=== PATIENT | male | born 1970 | race Caucasian/White ===

== ENCOUNTER 2017-12-26 09:24 | Emergency (ER) | payer OTHER ==
[2017-12-26 09:32] VITALS: BP 161/88; PULSE 87; RESP 16; TEMP 98; O2SAT 98
--- NOTE | 2017-12-26 10:02 | C.PDOC ---
History Of Present Illness 47 y/o M p/w chin rash x 1 day. Patient states he gets this rash once every year in the winter time for the last 3 years. He has shown Dr. Sullivan PMD in the past and was prescribed allergy medication. He reports it as itchy and he notes that the corners of his mouth have split skin. He denies pain, fever, sore throat, dyspnea, drooling. Time Seen by Provider: 12/26/17 09:33 Chief Complaint (Nursing): Abnormal Skin Integrity Past Medical History Vital Signs: Last Vital Signs Temp 98 F 12/26/17 09:30 Pulse 87 12/26/17 09:30 Resp 16 12/26/17 09:30 BP 161/88 H 12/26/17 09:30 Pulse Ox 98 12/26/17 09:30 - Medical History PMH: HTN Denies: HIV, Chronic Kidney Disease Surgical History: Appendectomy (perforated appendix) Family History: States: No Known Family Hx - Social History Hx Tobacco Use: Yes Hx Alcohol Use: No Hx Substance Use: No - Immunization History Hx Tetanus Toxoid Vaccination: No Hx Influenza Vaccination: No Hx Pneumococcal Vaccination: No Review Of Systems Except As Marked, All Systems Reviewed And Found Negative. Constitutional: Negative for: Fever Respiratory: Negative for: Shortness of Breath Physical Exam - Physical Exam Additional Physical Exam Comments: Gen: NAD Head: NC Eyes: No scleral icterus ENT: No pharyngeal erythema or exudates. Airway patent Neck: Supple CV: Regular rate Resp: No accessory muscle use Skin: From lower lip to under chin, mild erythema without tenderness. Corners of mouth with cracked skin, no discharge. Neuro: Alert, no focal deficit ED Course And Treatment O2 Sat by Pulse Oximetry: 98 Medical Decision Making Medical Decision Making: Patient with same rash recurring for 3 years. No danger of airway compromise, not clinically cellulitis. Will treat as allergic reaction, could be vitamin deficiency, dry skin from cold weather. Advised patient to follow up with dermatology. Disposition - Disposition Referrals: Jamir Sullivan MD [Staff Provider] - Disposition: HOME/ ROUTINE Disposition Time: 10:03 Condition: STABLE Prescriptions: DiphenhydrAMINE [Benadryl] 2 cap PO Q8 #25 cap Famotidine [Pepcid] 1 tab PO BID #14 tab Instructions: Mouth Sores - Clinical Impression Clinical Impression: Rash
== END 2017-12-26 10:10 | disposition home or self-care (01) ==
LOC: C.ER 09:24
DX: R21 Rash and other nonspecific skin eruption (principal)

== ENCOUNTER 2018-08-23 07:12 | Emergency (ER) | payer OTHER ==
[2018-08-23 07:19] VITALS: TEMP 97.9; O2SAT 97
[2018-08-23 08:10] LABS: URINE BILIRUBIN NEGATIVE (NEGATIVE); URINE BLOOD 1+ (NEGATIVE); URINE CLARITY Clear (Clear); URINE COLOR Yellow (YELLOW); URINE GLUCOSE (UA) NORMAL (Normal); URINE LEUKOCYTE ESTERASE NEG Leu/uL (Negative); URINE PROTEIN NEGATIVE (NEGATIVE); URINE UROBILINOGEN NORMAL mg/dL (0.2-1.0)
[2018-08-23 08:29] VITALS: BP 155/99; PULSE 60; RESP 18
--- NOTE | 2018-08-23 08:29 | C.PDOC ---
History Of Present Illness 48-year-old, PMHx includes chronic back pain, comes in for evaluation of diffuse lower back pain worsening over the past two weeks. Pain is localized and worse with movement. 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 Noted elevated blood pressure on triage, pt asked and he denies taking any medication. He denies headache, dizziness, visual changes, focal deficits, neck pain, chest pain, shortness of breath, dyspnea, palpitation, abdominal pain, N/V, UTI sx ,saddle anesthesia,m incontinence, denies weakness, sensory or vascular deficits to B/L lEs. Ambulate to Ed for evaluation, not in any apparent distress. Time Seen by Provider: 08/23/18 07:24 Chief Complaint (Nursing): Back Pain History Per: Patient History/Exam Limitations: no limitations Past Medical History Reviewed: Historical Data, Nursing Documentation, Vital Signs Vital Signs: Last Vital Signs Temp 97.9 F 08/23/18 07:17 Pulse 68 08/23/18 07:17 Resp 16 08/23/18 07:17 BP 193/102 H 08/23/18 07:17 Pulse Ox 97 08/23/18 07:17 - Medical History PMH: HTN Surgical History: Appendectomy (perforated appendix) Family History: States: No Known Family Hx - Social History Hx Tobacco Use: Yes Hx Alcohol Use: No Hx Substance Use: No - Immunization History Hx Tetanus Toxoid Vaccination: No Hx Influenza Vaccination: No Hx Pneumococcal Vaccination: No Review Of Systems Constitutional: Negative for: Fever Cardiovascular: Negative for: Chest Pain Respiratory: Negative for: Shortness of Breath Gastrointestinal: Negative for: Vomiting Genitourinary: Negative for: Incontinence Musculoskeletal: Positive for: Back Pain Neurological: Negative for: Weakness, Numbness Physical Exam - Physical Exam Appears: Well, Non-toxic, No Acute Distress Skin: Normal Color, Warm, Dry, No Rash Head: Normacephalic Eye(s): bilateral: PERRL Nose: No Flaring, No Discharge Oral Mucosa: Moist, No Drooling Tongue: Normal Appearing Lips: Normal Appearing Throat: No Drooling Neck: Normal ROM, Trachea Midline, Supple Cardiovascular: Rhythm Regular, No Murmur, No JVD Respiratory: No Decreased Breath Sounds, No Accessory Muscle Use, No Wheezing, No Plerual Rub Gastrointestinal/Abdominal: Soft, No Tenderness, No Distention, No Guarding, No Rebound Back: No CVA Tenderness, No Vertebral Tenderness, Muscle Spasm (lumbar paraspinal), Paraspinal Tenderness (diffuse lumbar) Extremity: Normal ROM, No Pedal Edema, No Deformity, No Swelling Neurological/Psych: Oriented x3, Normal Speech, Normal Motor, Normal Sensation, Normal Reflexes ED Course And Treatment O2 Sat by Pulse Oximetry: 97 Pulse Ox Interpretation: Normal (RA) - Other Rad L-spine X-Ray: Interpreted by Me, Viewed By Me Interpretation: (-) acute fx or sublux Progress Note: On re-eval, pt is afebrile, hemodynamicaly stable. BP improved with BP medictaion while in ED. Non-toxic. Ambulatory rin ED with stable gait. ENT: no acute findings. neck: Supple, (-) JVD, (-) carotid bruits B/L. CVS: (+)S1S2, reg, (-) murmur. Abd: benign. Back: (-) CVA tenderness. Neurologicaly intact. Pt denies CP, SOB, dyspnea, palpitation. UA review - normal study. L-spine- normal study. Pt has clinical findings c/w lumbar strain, HTN. Pt advised. ref. to F/u with PMD in 1-2 dyas for BP re-check. return to Ed if any worsening or new changes. Disposition Counseled Patient/Family Regarding: Studies Performed, Diagnosis, Need For Followup, Rx Given - Disposition Referrals: at [facility] [Outside] Disposition: HOME/ ROUTINE Disposition Time: 08:31 Condition: STABLE Additional Instructions: Light duty to lower back Avoid heavy lifting Take medication as prescribed Follow up with PMD in 1-2 days for BP repeat return to Ed if any worsening or new changes. Prescriptions: Gabapentin [Neurontin] 300 mg PO HS #10 cap Lisinopril [Zestril] 5 mg PO DAILY #14 tab traMADol [Ultram] 50 mg PO Q12 #7 tab Instructions: High Blood Pressure in Adults, Low Back Pain (DC) Forms: [facility] (Armenian), Work Excuse - Clinical Impression Clinical Impression: Low back strain, HTN (hypertension) - Scribe Statement The provider has reviewed the documentation as recorded by the Scribe (Angela Alvarado) All medical record entries made by the Scribe were at my direction and personally dictated by me. I have reviewed the chart and agree that the record accurately reflects my personal performance of the history, physical exam, medical decision making, and the department course for this patient. I have also personally directed, reviewed, and agree with the discharge instructions and disposition.
--- NOTE | 2018-08-23 11:42 | RAD ---
Date of service: 08/23/2018 PROCEDURE: Radiographs of the Lumbar Spine. HISTORY: pain COMPARISON: CT abdomen and pelvis without contrast performed 07/02/13 FINDINGS: BONES: Alignment appears satisfactory. No listhesis. No acute displaced fracture identified. Multilevel degenerative changes including small anterior osteophytes. DISC SPACES: Unremarkable. OTHER FINDINGS: Atherosclerotic calcifications of the abdominal aorta. IMPRESSION: No acute displaced fracture or subluxation identified. Degenerative changes.
== END 2018-08-23 08:58 | disposition home or self-care (01) ==
LOC: C.ER 07:12
DX: S39.012A Strain of muscle, fascia and tendon of lower back, initial encounter (principal); X50.0XXA Overexertion from strenuous movement or load, initial encounter; Y99.0 Civilian activity done for income or pay; I10 Essential (primary) hypertension; Z72.0 Tobacco use

== ENCOUNTER 2018-11-28 22:28 | Inpatient (IN) | payer OTHER ==
[2018-11-28] MEDS ORDERED: Sodium Chloride 0.9% 1,000 ML IV ONE (22:42)
[2018-11-28 23:03] LABS: BASO # 0.1 K/uL (0.0-0.2); BASO % 0.8 % (0.0-2.0); EOS # 0.4 K/uL (0.0-0.7); EOS % 2.1 % (0.0-4.0); HEMOGLOBIN 16.4 g/dL (12.0-18.0); LYMPH # 2.1 K/uL (1.0-4.3); LYMPH % 12.3 % (20.0-40.0); MEAN CORPUSCULAR HEMOGLOBIN 29.5 pg (27.0-31.0); MEAN CORPUSCULAR HGB CONC 33.2 g/dL (33.0-37.0); MEAN PLATELET VOLUME 7.5 fL (7.2-11.7); MONO # 0.9 K/uL (0.0-0.8); MONO % 5.2 % (0.0-10.0); NEUT # 13.5 K/uL (1.8-7.0); NEUT % 79.6 % (50.0-75.0); NRBC % 0.1 % (0.0-2.0); RBC 5.57 Mil/uL (4.40-5.90); WHITE BLOOD COUNT 16.9 K/uL (4.8-10.8)
[2018-11-28] MEDS ORDERED: Morphine 4 MG/ML VIAL ONE (23:03)
[2018-11-28] MEDS ORDERED: Sodium Chloride 0.9% 1,000 ML ONE (23:03)
--- NOTE | 2018-11-28 23:03 | C.PDOC ---
History Of Present Illness 48 y/o male presents to the ED with complaints of mid/generalized abdominal pain with sudden onset at 8:00pm this evening. Patient reports he has frequent constipation and often passes only small stools, however his last BM was at noon today. He also notes his belly feels distended. Otherwise patient denies any nausea, vomiting, fevers, chills, or diarrhea. No urinary complaints. Surgical history is significant for appendectomy many years ago. Time Seen by Provider: 11/28/18 22:36 Chief Complaint (Nursing): Abdominal Pain History Per: Patient History/Exam Limitations: no limitations Onset/Duration Of Symptoms: Hrs (x 2) Current Symptoms Are (Timing): Still Present Location Of Pain/Discomfort: Diffuse Alleviating Factors: None Last Bowel Movement: Today Recent travel outside of the [place]: No Past Medical History Reviewed: Historical Data, Nursing Documentation, Vital Signs Vital Signs: Last Vital Signs Temp 97.3 F L 11/28/18 22:32 Pulse 96 H 11/28/18 22:32 Resp 20 11/28/18 22:32 BP 196/103 H 11/28/18 22:32 Pulse Ox 100 11/28/18 22:32 - Medical History PMH: HTN Denies: HIV, Chronic Kidney Disease Surgical History: Appendectomy (perforated appendix) Family History: States: Unknown Family Hx - Social History Hx Tobacco Use: Yes Hx Alcohol Use: No Hx Substance Use: No - Immunization History Hx Tetanus Toxoid Vaccination: No Hx Influenza Vaccination: No Hx Pneumococcal Vaccination: No Review Of Systems Constitutional: Negative for: Fever, Chills Cardiovascular: Negative for: Chest Pain Respiratory: Negative for: Shortness of Breath Gastrointestinal: Positive for: Abdominal Pain (and distension), Constipation. Negative for: Nausea, Vomiting, Diarrhea Genitourinary: Negative for: Dysuria, Hematuria Neurological: Negative for: Weakness, Dizziness Physical Exam - Physical Exam Appears: Non-toxic, No Acute Distress, Other (Blood pressure elevated, 196/103) Skin: Normal Color, Warm, No Diaphoretic Head: Atraumatic, Normacephalic Eye(s): bilateral: Normal Inspection, PERRL, EOMI Oral Mucosa: Moist Neck: Normal ROM Chest: Symmetrical Cardiovascular: Rhythm Regular (but tachycardic), No Murmur Respiratory: Normal Breath Sounds, No Accessory Muscle Use Gastrointestinal/Abdominal: Bowel Sounds (Tympanitic), Soft, Tenderness (diffusely), Distention (+ abdomen distended), Guarding (tense guarding diffusely) Back: Normal Inspection Extremity: Bilateral: Normal Color And Temperature, Normal ROM Neurological/Psych: Oriented x3, Normal Speech ED Course And Treatment - Laboratory Results Result Diagrams: 11/28/18 23:00 11/28/18 23:00 Lab Interpretation: Abnormal ECG: Interpreted By Me ECG Rhythm: Sinus Rhythm (with LVH and repolarization abnormalities) O2 Sat by Pulse Oximetry: 100 (RA) Pulse Ox Interpretation: Normal - Other Rad Obstructive series X-Ray: Interpreted by Me Interpretation: Cardiomegaly, no evidence of dilated bowel or obstruction Progress Note: CT abdomen and pelvis with contrast ordered. Medical Decision Making Medical Decision Making: Impression: Abdominal Pain, r/o bowel obstruction Plan: --EKG --Blood work --Urinalysis --Obstructive series x-ray --1L IV fluids --2 mg IV morphine Disposition - Disposition Disposition Time: 00:45 Condition: STABLE Forms: [employer] (Greek) - Clinical Impression Clinical Impression: Abdominal pain - Scribe Statement The provider has reviewed the documentation as recorded by the Mannyibe Danielle Shah Provider Attestation: All medical record entries made by the Scribe were at my direction and personally dictated by me. I have reviewed the chart and agree that the record accurately reflects my personal performance of the history, physical exam, medi rehan decision making, and the department course for this patient. I have also personally directed, reviewed, and agree with the discharge instructions and disposition. Physician Patient Turnover Patient Signed Over To: Elsa Gomes Handoff Comments: Pending CT
[2018-11-28] MEDS ORDERED: Iohexol 240 (50 ml) PO ONE (23:04)
[2018-11-28 23:05] LABS: URINE BACTERIA RARE (<OCC); URINE BILIRUBIN NEGATIVE (NEGATIVE); URINE BLOOD NEGATIVE (NEGATIVE); URINE CLARITY Clear (Clear); URINE COLOR Yellow (YELLOW); URINE GLUCOSE (UA) NORMAL (Normal); URINE LEUKOCYTE ESTERASE NEG Leu/uL (Negative); URINE PROTEIN 1+ mg/dL (NEGATIVE); URINE UROBILINOGEN NORMAL mg/dL (0.2-1.0)
[2018-11-28] MEDS ORDERED: Iohexol 240 (50 ml) ONE (23:17)
[2018-11-28 23:18] LABS: ALB/GLOB RATIO 1.4 (1.0-2.1); ALBUMIN 4.8 g/dL (3.5-5.0); ALT/SGPT 20 U/L (21-72); AST/SGOT 20 U/L (17-59); BLOOD UREA NITROGEN 11 mg/dL (9-20); GFR NON-AFRICAN AMERICAN > 60; LIPASE 97 U/L (23-300)
[2018-11-29] MEDS ORDERED: Iodixanol 320 MG/ML 100 ML BOTTLE IV ONE (00:50)
[2018-11-29] MEDS ORDERED: Morphine 4 MG/ML VIAL ONE (01:22)
--- NOTE | 2018-11-29 03:20 | CP.PCM.HP ---
<Dallin Lemus - Last Filed: 11/29/18 04:24> History of Present Illness - History of Present Illness History of Present Illness: PGY-1 History and Physical for Dr. Kaminski Patient is a 48 year old male with past medical history of HTN, diverticulitis presenting to ED with acute onset cramping periumbilical abdominal pain. Per patient, the pain began suddenly around 8PM, is nonradiating, rated 9/10 in severity. Patient also endorses associated constipation for the past week, states that his last BM was at noon today but that he strains to go to the bathroom, has been having consistently smaller BM. Denies fevers/chills, headaches, dizziness, chest pain, palpitations, sob, cough, [place]/vomiting/diarrhea, dysuria, hematochemia, or melena. PMHx: HTN, diverticulitis PSHx: appendectomy (8 years old) Allergies: NKDA Home Medications: none Social Hx: +tobacco use:<10 cigarettes daily, social drinker, denies illicit drug use Family Hx: unknown PMD: none Present on Admission - Present on Admission Any Indicators Present on Admission: No Review of Systems - Review of Systems All systems: reviewed and no additional remarkable complaints except Review of Systems: as per HPI Past Patient History - Infectious Disease Hx of Infectious Diseases: None - Tetanus Immunizations Tetanus Immunization: Unknown - Past Medical History & Family History Past Medical History?: Yes - Past Social History Smoking Status: Light Smoker < 10 Cigarettes Daily - CARDIAC Hx Hypertension: Yes - PULMONARY Hx Respiratory Disorders: No - NEUROLOGICAL Hx Neurological Disorder: No - HEENT Hx HEENT Problems: No - RENAL Hx Chronic Kidney Disease: No - ENDOCRINE/METABOLIC Hx Endocrine Disorders: No - HEMATOLOGICAL/ONCOLOGICAL Hx Human Immunodeficiency Virus (HIV): No - INTEGUMENTARY Hx Dermatological Problems: No - MUSCULOSKELETAL/RHEUMATOLOGICAL Hx Musculoskeletal Disorders: No Hx Falls: No - GASTROINTESTINAL Hx Gastrointestinal Disorders: No - GENITOURINARY/GYNECOLOGICAL Hx Genitourinary Disorders: No - PSYCHIATRIC Hx Substance Use: No - SURGICAL HISTORY Hx Appendectomy: Yes (perforated appendix) - ANESTHESIA Hx Anesthesia: Yes Hx Anesthesia Reactions: No Hx Malignant Hyperthermia: No Meds Allergies/Adverse Reactions: Allergies Allergy/AdvReac Type Severity Reaction Status Date / Time No Known Allergies Allergy Verified 11/28/18 22:39 Physical Exam - Constitutional Appears: Non-toxic, No Acute Distress - Head Exam Head Exam: ATRAUMATIC, NORMAL INSPECTION, NORMOCEPHALIC - Eye Exam Eye Exam: EOMI, Normal appearance Pupil Exam: NORMAL ACCOMODATION - ENT Exam ENT Exam: Mucous Membranes Moist, Normal Exam - Neck Exam Neck exam: Positive for: Full Rom, Normal Inspection. Negative for: Tenderness - Respiratory Exam Respiratory Exam: Clear to Auscultation Bilateral, NORMAL BREATHING PATTERN. absent: Accessory Muscle Use, Rales, Rhonchi, Wheezes, Respiratory Distress, Stridor - Cardiovascular Exam Cardiovascular Exam: REGULAR RHYTHM, +S1, +S2 - GI/Abdominal Exam GI & Abdominal Exam: Distended, Firm, Normal Bowel Sounds, Tenderness (mild TTP lower abdomen). absent: Guarding, Rebound, Rigid - Extremities Exam Extremities exam: Positive for: normal capillary refill, normal inspection, pedal pulses present. Negative for: calf tenderness, pedal edema - Back Exam Back exam: NORMAL INSPECTION. absent: CVA tenderness (L), CVA tenderness (R) - Neurological Exam Neurological exam: Alert, CN II-XII Intact, Oriented x3 - Psychiatric Exam Psychiatric exam: Normal Affect, Normal Mood - Skin Skin Exam: Dry, Intact, Normal Color, Warm Results - Vital Signs Recent Vital Signs: Last Vital Signs Temp 98.2 F 11/29/18 02:41 Pulse 76 11/29/18 02:41 Resp 12 11/29/18 02:41 BP 168/111 H 11/29/18 02:41 Pulse Ox 97 11/29/18 02:41 - Labs Result Diagrams: 11/28/18 23:00 11/28/18 23:00 Labs: Laboratory Results - last 24 hr 11/28/18 11/28/18 11/28/18 23:00 23:00 23:00 WBC 16.9 H RBC 5.57 Hgb 16.4 Hct 49.5 MCV 89.0 D MCH 29.5 MCHC 33.2 RDW 14.0 Plt Count 429 H MPV 7.5 Neut % (Auto) 79.6 H Lymph % (Auto) 12.3 L [place] % (Auto) 5.2 Eos % (Auto) 2.1 Baso % (Auto) 0.8 Neut # (Auto) 13.5 H Lymph # (Auto) 2.1 [place] # (Auto) 0.9 H Eos # (Auto) 0.4 Baso # (Auto) 0.1 Sodium 141 Potassium 3.7 Chloride 105 Carbon Dioxide 25 Anion Gap 15 BUN 11 Creatinine 0.9 Est GFR ( Amer) > 60 Est GFR (Non-Af Amer) > 60 Random Glucose 155 H D Calcium 9.0 Total Bilirubin 0.3 AST 20 ALT 20 L D Alkaline Phosphatase 86 Total Protein 8.2 Albumin 4.8 Globulin 3.4 Albumin/Globulin Ratio 1.4 Lipase 97 Urine Color Yellow Urine Clarity Clear Urine pH 7.0 Ur Specific [place] 1.012 Urine Protein 1+ H Urine Glucose (UA) Normal Urine Ketones Negative Urine Blood Negative Urine Nitrate Negative Urine Bilirubin Negative Urine Urobilinogen Normal Ur Leukocyte Esterase Neg Urine WBC (Auto) 1 Urine RBC (Auto) 1 Urine Bacteria Rare Assessment & Plan - Assessment and Plan (Free Text) Assessment: 48 year old male with pmhx of HTN, diverticulitis presenting to ED with acute onset abdominal pain, constipation. CT abdomen/pelvis demonstrates partial SBO. Plan: Acute onset abdominal pain 2/2 partial SBO -f/u abdominal obstruction series official read -CT abdomen/pelvis: Partial small bowel obstruction. Transition zone in the right lower quadrant of the distal ileum. Significant edema and thickening of the obstructive/dilated distal ileal small bowel loops without perforation or pneumatosis intestinalis. Associated inflammatory pathology of the distended/obstructed ileal small bowel loops is considered. Mild amount of free fluid is noted in the right lower quadrant. -EKG: NSR @ 73 bpm, LVH with repolarization abnormality. Inferior infarct, age undetermined -NS @ 100cc/hr -NPO -Surgery (Dr. Mejia) consulted -toradol 30 mg IVP q6 prn for pain HTN -149/99; patient asymptomatic -s/p clonidine 0.1 mg PO, morphine 2 mg IVP x2 in ED -Norvasc 10 mg PO x1 given, continue to monitor PPx, Diet, Disposition -DVT ppx: scd, lovenox -GI ppx: protonix -Diet: NPO Case discussed with Dr. Yamilex Lemus DO, PGY-1 <Michael Kaminski - Last Filed: 11/29/18 06:39> Results - Vital Signs Recent Vital Signs: Last Vital Signs Temp 98.2 F 11/29/18 02:41 Pulse 76 11/29/18 05:25 Resp 19 11/29/18 03:49 BP 149/99 H 11/29/18 04:14 Pulse Ox 99 11/29/18 05:25 - Labs Result Diagrams: 11/28/18 23:00 11/28/18 23:00 Labs: Laboratory Results - last 24 hr 11/28/18 11/28/18 11/28/18 23:00 23:00 23:00 WBC 16.9 H RBC 5.57 Hgb 16.4 Hct 49.5 MCV 89.0 D MCH 29.5 MCHC 33.2 RDW 14.0 Plt Count 429 H MPV 7.5 Neut % (Auto) 79.6 H Lymph % (Auto) 12.3 L [place] % (Auto) 5.2 Eos % (Auto) 2.1 Baso % (Auto) 0.8 Neut # (Auto) 13.5 H Lymph # (Auto) 2.1 [place] # (Auto) 0.9 H Eos # (Auto) 0.4 Baso # (Auto) 0.1 Sodium 141 Potassium 3.7 Chloride 105 Carbon Dioxide 25 Anion Gap 15 BUN 11 Creatinine 0.9 Est GFR ( Amer) > 60 Est GFR (Non-Af Amer) > 60 POC Glucose (mg/dL) Random Glucose 155 H D Calcium 9.0 Total Bilirubin 0.3 AST 20 ALT 20 L D Alkaline Phosphatase 86 Total Protein 8.2 Albumin 4.8 Globulin 3.4 Albumin/Globulin Ratio 1.4 Lipase 97 Urine Color Yellow Urine Clarity Clear Urine pH 7.0 Ur Specific [place] 1.012 Urine Protein 1+ H Urine Glucose (UA) Normal Urine Ketones Negative Urine Blood Negative Urine Nitrate Negative Urine Bilirubin Negative Urine Urobilinogen Normal Ur Leukocyte Esterase Neg Urine WBC (Auto) 1 Urine RBC (Auto) 1 Urine Bacteria Rare 11/29/18 06:21 WBC RBC Hgb Hct MCV MCH MCHC RDW Plt Count MPV Neut % (Auto) Lymph % (Auto) [place] % (Auto) Eos % (Auto) Baso % (Auto) Neut # (Auto) Lymph # (Auto) [place] # (Auto) Eos # (Auto) Baso # (Auto) Sodium Potassium Chloride Carbon Dioxide Anion Gap BUN Creatinine Est GFR ( Amer) Est GFR (Non-Af Amer) POC Glucose (mg/dL) 118 H Random Glucose Calcium Total Bilirubin AST ALT Alkaline Phosphatase Total Protein Albumin Globulin Albumin/Globulin Ratio Lipase Urine Color Urine Clarity Urine pH Ur Specific [place] Urine Protein Urine Glucose (UA) Urine Ketones Urine Blood Urine Nitrate Urine Bilirubin Urine Urobilinogen Ur Leukocyte Esterase Urine WBC (Auto) Urine RBC (Auto) Urine Bacteria Assessment & Plan - Date & Time Date: 11/29/18 (I have seen and examined the patient. I agree with the findings and plan of care as documented by Dr. Lemus. Patient with partial SBO. History of prior abdominal surgery. Consult to surgery. Symptomatic treatment. History of hypertension. Clonidine given in ED. Start norvasc. Monitor for acute changes.) Time: 06:38 Attending/Attestation - Attestation I have personally seen and examined this patient.: Yes I have fully participated in the care of the patient.: Yes I have reviewed all pertinent clinical information: Yes
[2018-11-29] MEDS: Sodium Chloride 0.9% 1,000 ML IV SCH ×2 (03:39→14:28)
[2018-11-29 07:12] VITALS: RESP 20
--- NOTE | 2018-11-29 07:18 | CP.PCM.CON ---
<Edward Schulte - Last Filed: 11/29/18 07:22> History of Present Illness - History of Present Illness History of Present Illness: Surgery Consult note. Dr. Mejia 48yo M with PMHx of HTN and diverticulitis here for evaluation of abdominal distention and abdominal pain. Patient states his pain started approximately 1 week ago and gradually became worse. He noted increasing distention over the same time period. He was nauseous and had one episode of vomiting prior to arrival, non-bilious, non-bloody. He states that he has similar symptoms in the past, however, this episode is more severe than previous. Currently, he denies any N/V/D. Does report having hard stool last night and passing gas early this morning. Denies any F/C. No CP/SOB. Denies any sick contacts. No diarrhea. No urinary complaints. PMHx: HTN, Diverticulitis PSHx: Open Appendectomy in [facility] (40 years ago) Family Hx: Non-contributory Social Hx: Admits to Tobacco use, Denies ETOH use, Denies illicit drugs NKDA Review of Systems - Review of Systems All systems: reviewed and no additional remarkable complaints except - Constitutional Constitutional: As Per HPI. absent: Chills, Fever - Cardiovascular Cardiovascular: absent: Chest Pain, Dyspnea - Respiratory Respiratory: absent: Cough - Gastrointestinal Gastrointestinal: Abdominal Pain, Belching, Constipation, Nausea, Vomiting. a bsent: Diarrhea Past Patient History - Infectious Disease Hx of Infectious Diseases: None - Tetanus Immunizations Tetanus Immunization: Unknown - Past Medical History & Family History Past Medical History?: Yes Past Family History: Reviewed and not pertinent - Past Social History Smoking Status: Current Some Days Smoker - CARDIAC Hx Cardiac Disorders: Yes Hx Hypertension: Yes - PULMONARY Hx Respiratory Disorders: No - NEUROLOGICAL Hx Neurological Disorder: No - HEENT Hx HEENT Problems: No - RENAL Hx Chronic Kidney Disease: No - ENDOCRINE/METABOLIC Hx Endocrine Disorders: No - HEMATOLOGICAL/ONCOLOGICAL Hx Blood Disorders: No Hx Human Immunodeficiency Virus (HIV): No - INTEGUMENTARY Hx Dermatological Problems: No - MUSCULOSKELETAL/RHEUMATOLOGICAL Hx Musculoskeletal Disorders: No Hx Falls: No - GASTROINTESTINAL Hx Gastrointestinal Disorders: No - GENITOURINARY/GYNECOLOGICAL Hx Genitourinary Disorders: No - PSYCHIATRIC Hx Psychophysiologic Disorder: No Hx Substance Use: No - SURGICAL HISTORY Hx Surgeries: Yes Hx Appendectomy: Yes (perforated appendix) - ANESTHESIA Hx Anesthesia: Yes Hx Anesthesia Reactions: No Hx Malignant Hyperthermia: No Has any member of the family had a problem w/ anesthesia?: No Meds Allergies/Adverse Reactions: Allergies Allergy/AdvReac Type Severity Reaction Status Date / Time No Known Allergies Allergy Verified 11/28/18 22:39 - Medications Medications: Current Medications Enoxaparin Sodium (Lovenox) 40 mg SC DAILY [facility] Sodium Chloride (Sodium Chloride 0.9%) 1,000 mls @ 100 mls/hr IV .Q10H [facility] Last Admin: 11/29/18 03:39 Dose: 100 mls/hr Influenza Virus Vaccine (Flucelvax Quad 8469-6631 Syr) 60 mcg IM .ONCE ONE Stop: 11/30/18 10:01 Ketorolac Tromethamine (Toradol) 30 mg IVP Q6 PRN PRN Reason: Pain, moderate (4-7) Last Admin: 11/29/18 04:53 Dose: 30 mg Pantoprazole Sodium (Protonix Inj) 40 mg IVP DAILY [facility] Pneumococcal Polyvalent Vaccine (Pneumovax 23 Vaccine) 0.5 ml IM .ONCE ONE Stop: 11/30/18 10:01 Physical Exam - Constitutional Appears: Well, Non-toxic, No Acute Distress - Head Exam Head Exam: ATRAUMATIC, NORMAL INSPECTION, NORMOCEPHALIC - Eye Exam Eye Exam: EOMI, Normal appearance. absent: Scleral icterus - ENT Exam ENT Exam: Mucous Membranes Moist - Cardiovascular Exam Cardiovascular Exam: RRR. absent: JVD - GI/Abdominal Exam GI & Abdominal Exam: Distended, Soft. absent: Guarding, Rebound, Rigid, Tenderness Additional comments: moderate distention - Extremities Exam Extremities exam: Positive for: normal inspection. Negative for: calf tender ness - Neurological Exam Neurological exam: Alert, Oriented x3 - Psychiatric Exam Psychiatric exam: Normal Affect, Normal Mood - Skin Skin Exam: Dry, Intact, Normal Color, Warm Results - Vital Signs Recent Vital Signs: Last Vital Signs Temp 98 F 11/29/18 05:00 Pulse 76 11/29/18 05:25 Resp 20 11/29/18 05:00 BP 146/94 H 11/29/18 05:00 Pulse Ox 99 11/29/18 05:25 - Labs Result Diagrams: 11/28/18 23:00 11/28/18 23:00 Labs: Laboratory Results - last 24 hr 11/28/18 11/28/18 11/28/18 23:00 23:00 23:00 WBC 16.9 H RBC 5.57 Hgb 16.4 Hct 49.5 MCV 89.0 D MCH 29.5 MCHC 33.2 RDW 14.0 Plt Count 429 H MPV 7.5 Neut % (Auto) 79.6 H Lymph % (Auto) 12.3 L [place] % (Auto) 5.2 Eos % (Auto) 2.1 Baso % (Auto) 0.8 Neut # (Auto) 13.5 H Lymph # (Auto) 2.1 [place] # (Auto) 0.9 H Eos # (Auto) 0.4 Baso # (Auto) 0.1 Sodium 141 Potassium 3.7 Chloride 105 Carbon Dioxide 25 Anion Gap 15 BUN 11 Creatinine 0.9 Est GFR ( Amer) > 60 Est GFR (Non-Af Amer) > 60 POC Glucose (mg/dL) Random Glucose 155 H D Calcium 9.0 Total Bilirubin 0.3 AST 20 ALT 20 L D Alkaline Phosphatase 86 Total Protein 8.2 Albumin 4.8 Globulin 3.4 Albumin/Globulin Ratio 1.4 Lipase 97 Urine Color Yellow Urine Clarity Clear Urine pH 7.0 Ur Specific [place] 1.012 Urine Protein 1+ H Urine Glucose (UA) Normal Urine Ketones Negative Urine Blood Negative Urine Nitrate Negative Urine Bilirubin Negative Urine Urobilinogen Normal Ur Leukocyte Esterase Neg Urine WBC (Auto) 1 Urine RBC (Auto) 1 Urine Bacteria Rare 11/29/18 06:21 WBC RBC Hgb Hct MCV MCH MCHC RDW Plt Count MPV Neut % (Auto) Lymph % (Auto) [place] % (Auto) Eos % (Auto) Baso % (Auto) Neut # (Auto) Lymph # (Auto) [place] # (Auto) Eos # (Auto) Baso # (Auto) Sodium Potassium Chloride Carbon Dioxide Anion Gap BUN Creatinine Est GFR ( Amer) Est GFR (Non-Af Amer) POC Glucose (mg/dL) 118 H Random Glucose Calcium Total Bilirubin AST ALT Alkaline Phosphatase Total Protein Albumin Globulin Albumin/Globulin Ratio Lipase Urine Color Urine Clarity Urine pH Ur Specific [place] Urine Protein Urine Glucose (UA) Urine Ketones Urine Blood Urine Nitrate Urine Bilirubin Urine Urobilinogen Ur Leukocyte Esterase Urine WBC (Auto) Urine RBC (Auto) Urine Bacteria Assessment & Plan - Assessment and Plan (Free Text) Assessment: 48yo M w partial SBO Plan: - Bowel rest - Monitor for Bowel function - IVF - Antiemetics as needed - May need NGT if becomes nauseous or starts to have emesis - Conservative management for now. Further recs as per Dr. Jackie Schulte PGY2 surgery <Ken Mejia - Last Filed: 11/30/18 16:24> Results - Vital Signs Recent Vital Signs: Last Vital Signs Temp 97.7 F 11/30/18 07:29 Pulse 60 11/30/18 11:00 Resp 20 11/30/18 07:29 BP 166/99 H 11/30/18 11:00 Pulse Ox 96 11/30/18 07:29 - Labs Result Diagrams: 11/30/18 06:53 11/30/18 06:53 Labs: Laboratory Results - last 24 hr 11/30/18 11/30/18 06:53 06:53 WBC 8.6 RBC 5.09 Hgb 14.7 Hct 44.6 MCV 87.7 MCH 29.0 MCHC 33.0 RDW 13.7 Plt Count 386 MPV 7.6 Neut % (Auto) 61.7 Lymph % (Auto) 23.1 [place] % (Auto) 7.3 Eos % (Auto) 7.0 H Baso % (Auto) 0.9 Neut # (Auto) 5.3 Lymph # (Auto) 2.0 [place] # (Auto) 0.6 Eos # (Auto) 0.6 Baso # (Auto) 0.1 Sodium 138 Potassium 3.5 L Chloride 102 Carbon Dioxide 28 Anion Gap 12 BUN 8 L Creatinine 0.9 Est GFR ( Amer) > 60 Est GFR (Non-Af Amer) > 60 Random Glucose 99 D Calcium 8.5 L Phosphorus 3.8 Magnesium 1.9 Total Bilirubin 0.8 AST 24 ALT 19 L D Alkaline Phosphatase 69 Total Protein 6.9 Albumin 4.4 Globulin 2.5 Albumin/Globulin Ratio 1.7 Attending/Attestation - Attestation I have personally seen and examined this patient.: Yes I have fully participated in the care of the patient.: Yes I have reviewed all pertinent clinical information: Yes Notes (Text): Pt was seen and examined at bedside Agree with above note and assessment Pt with abdominal pain and nausea Abdomen: soft, Tender in RLQ, ND Labs and Radiology reviewed Ass: Enteritis, less likely appendicitis Plan : IV antibiotics Clear liquid diet CBC in am Plan d.w pt in detail. Risk and benefit explained in detail.
[2018-11-29 07:35] LABS: BASO # 0.1 K/uL (0.0-0.2); BASO % 0.6 % (0.0-2.0); EOS # 0.1 K/uL (0.0-0.7); EOS % 0.5 % (0.0-4.0); HEMOGLOBIN 15.5 g/dL (12.0-18.0); LYMPH # 1.7 K/uL (1.0-4.3); LYMPH % 11.3 % (20.0-40.0); MEAN CELL VOLUME 89.4 fL (80.0-94.0); MEAN CORPUSCULAR HEMOGLOBIN 29.5 pg (27.0-31.0); MEAN PLATELET VOLUME 7.6 fL (7.2-11.7); MONO # 0.6 K/uL (0.0-0.8); NEUT # 12.3 K/uL (1.8-7.0); NEUT % 83.6 % (50.0-75.0); NRBC % 0.2 % (0.0-2.0); RBC 5.26 Mil/uL (4.40-5.90); RED CELL DISTRIBUTION WIDTH 13.8 % (11.5-14.5); WHITE BLOOD COUNT 14.7 K/uL (4.8-10.8)
--- NOTE | 2018-11-29 07:38 | CP.PCM.PN ---
Subjective - Date & Time of Evaluation Date of Evaluation: 11/29/18 Time of Evaluation: 07:37 - Subjective Subjective: PGY-1 Galina Daly D.O. Medicine progress note for Dr. Saldana's service: Patient was seen and examined this morning. Patient states that he still has abdominal pain but it is improved. He denies nausea and vomiting. He has not passed gas or moved his bowels since yesterday. He is urinating without difficulty. He reports abdominal surgery for appendicitis about 14 years ago. He denies ever having an SBO. Objective - Vital Signs/Intake and Output Vital Signs (last 24 hours): Temp Pulse Resp BP Pulse Ox 98.2 F 69 20 146/85 96 11/29/18 07:28 11/29/18 07:28 11/29/18 07:28 11/29/18 07:28 11/29/18 07:28 Intake and Output: 11/29/18 11/29/18 06:59 18:59 Intake Total 200 Balance 200 - Medications Medications: Current Medications Enoxaparin Sodium (Lovenox) 40 mg SC DAILY [facility] Sodium Chloride (Sodium Chloride 0.9%) 1,000 mls @ 100 mls/hr IV .Q10H [facility] Last Admin: 11/29/18 03:39 Dose: 100 mls/hr Influenza Virus Vaccine (Flucelvax Quad [id number] Syr) 60 mcg IM .ONCE ONE Stop: 11/30/18 10:01 Ketorolac Tromethamine (Toradol) 30 mg IVP Q6 PRN PRN Reason: Pain, moderate (4-7) Last Admin: 11/29/18 04:53 Dose: 30 mg Pantoprazole Sodium (Protonix Inj) 40 mg IVP DAILY [facility] Pneumococcal Polyvalent Vaccine (Pneumovax 23 Vaccine) 0.5 ml IM .ONCE ONE Stop: 11/30/18 10:01 - Labs Labs: 11/28/18 23:00 11/28/18 23:00 - Constitutional Appears: Non-toxic, No Acute Distress - Head Exam Head Exam: ATRAUMATIC, NORMAL INSPECTION - Eye Exam Eye Exam: EOMI, Normal appearance - ENT Exam ENT Exam: Mucous Membranes Moist - Neck Exam Neck Exam: Normal Inspection - Respiratory Exam Respiratory Exam: Clear to Ausculation Bilateral, NORMAL BREATHING PATTERN. absent: Respiratory Distress - Cardiovascular Exam Cardiovascular Exam: RRR, +S1, +S2 - GI/Abdominal Exam GI & Abdominal Exam: Distended, Tenderness (diffuse), Hypoactive Bowel Sounds. absent: Rigid, Mass, Rebound - Extremities Exam Extremities Exam: Normal Inspection - Neurological Exam Neurological Exam: Alert, Awake, CN II-XII Intact, Oriented x3 - Psychiatric Exam Psychiatric exam: Normal Affect, Normal Mood - Skin Skin Exam: Dry, Normal Color, Warm Assessment and Plan - Assessment and Plan (Free Text) Assessment: Patient is a 48 yo male with history of HTN, diverticulitis, and open appy who presented with abdominal pain. Found to have SBO. Surgery consulted- will consider NGT if develops N/V. Plan: Small bowel obstruction - AXR obstruction series: Nonspecific bowel gas pattern with a paucity of bowel gas and air-fluid levels appreciated which is suspicious but not definitive for potential bowel obstruction. - CT A/P: Findings concerning for a small bowel/partial small bowel obstruction with transition zone in the right lower quadrant of the abdomen in the distal il eum. Significant edema and thickening of the obstructed and dilated distal small bowel loops. This may be secondary to acute infectious versus inflammatory versus ischemic changes. Fluid is noted within the right lower quadrant. - Clear liquid diet - Monitor bowel function - NS @ 75 mL/hr - Zosyn 3.375 g IV Q6H- started 11/29 - Toradol 30 mg IV Q6H PRN - Surgery consult (Jackie)- NGT if dev N/V Hypertension, chronic- patient off meds due to lack of insurance - Vitals Q6H - Start HCTZ 12.5 mg PO daily PPx: VTE: SCD, LVX 40 mg SC daily GI: PTX 40 mg IV daily Code status: full code Case was discussed with attending, Dr. Saldana.
[2018-11-29 07:41] LABS: ALB/GLOB RATIO 1.4 (1.0-2.1); ALBUMIN 4.3 g/dL (3.5-5.0); ALT/SGPT 27 U/L (21-72); AST/SGOT 20 U/L (17-59); BLOOD UREA NITROGEN 11 mg/dL (9-20); CALCIUM 8.6 mg/dl (8.6-10.4); GFR NON-AFRICAN AMERICAN > 60
[2018-11-29 07:53] LABS: PROTHROMBIN TIME 11.4 SECONDS (9.7-12.2)
--- NOTE | 2018-11-29 08:30 | CT ---
CT abdomen and pelvis HISTORY: Abdominal pain. COMPARISON: None available. TECHNIQUE: Multiple contiguous axial images were performed through the abdomen and pelvis with the use of intravenous contrast. Subsequently, sagittal and coronal reformatted images were obtained. FINDINGS: Scattered atelectasis at the lung bases. No pleural or pericardial effusion. Mild fatty infiltration of the liver. Gallbladder is preserved. Spleen is preserved. Adrenal glands are preserved. Pancreas is preserved. Small hiatal hernia. Right kidney: No calculi or hydronephrosis. Left Kidney: No calculi or hydronephrosis. Urinary bladder is preserved. Fluid in the bilateral scrotal sacs. Urinary bladder is preserved. Prostate and seminal vesicles are preserved. Colonic diverticulosis. Under distended descending colon. Fecal retention in the transverse colon. Shot[place] lymph nodes in the right lower quadrant of the abdominal mesentery. Appendix not well identified. Multiple thickened, dilated common enhancing loops of tortuous small bowel seen within the mid to lower abdomen most prominently seen within the right lower quadrant of the abdomen with a relative transition point seen at the level of the distal ileum suggestive for a small bowel obstruction/partial small bowel obstruction. This may be secondary to acute infectious versus inflammatory versus ischemic changes. Fluid and edema seen within the adjacent mesenteric fat. Atherosclerotic calcification and plaque within the aorta. Shotty para-aortic and mesenteric lymph nodes. Degenerative changes in spine. Impression: 1. Findings concerning for a small bowel/partial small bowel obstruction with transition zone in the right lower quadrant of the abdomen in the distal ileum. Significant edema and thickening of the obstructed and dilated distal small bowel loops. This may be secondary to acute infectious versus inflammatory versus ischemic changes. Clinical correlation. 2. Fluid is noted within the right lower quadrant. Additional findings as above. A preliminary report was generated at 2:27 a.m. on 11/29/[address] Kenji Heaton from [facility].
--- NOTE | 2018-11-29 09:04 | RAD ---
Date of service: 11/28/2018 PROCEDURE: Radiographs of the chest and abdomen (obstructive series) HISTORY: abd pain COMPARISON: No prior. TECHNIQUE: AP radiograph of the chest, with upright and supine radiographs of the abdomen. FINDINGS: CHEST: Lungs: Bronchovascular markings are accentuated at the mid to inferior lung zones without definitive consolidation identified. Reticular infiltrates not excluded bilaterally. Cardiovascular: Cardiac silhouette appears prominent. No pulmonary vascular congestion. No aortic atherosclerotic calcification present Pleura: No pleural fluid. No pneumothorax. Other findings: None. ABDOMEN AND PELVIS: Bowel: There is a nonspecific bowel gas pattern with limited air-fluid levels identified in the right allen abdomen and a paucity of bowel gas throughout the bowel loops in general. Follow-up CT of the abdomen pelvis is available if clinically warranted. No abnormal intra-abdominal calcifications are identified. Free air: None. Bones: Unremarkable. Other findings: None. IMPRESSION: Reticular infiltrates are not excluded at the mid to inferior lung zones bilaterally with cardiac silhouette appearing prominent. Clinical correlation is advised or consider PA and lateral radiograph projections for added characterization. Nonspecific bowel gas pattern with a paucity of bowel gas and air-fluid levels appreciated which is suspicious but not definitive for potential bowel obstruction. Follow-up CT of the abdomen and pelvis is available as clinically warranted.
[2018-11-29] MEDS: Piperacill/Tazo 3.375gm in Dex 3.375 GM/50 ML BAG IVPB SCH ×3 (10:15→21:40)
[2018-11-29] MEDS: Enoxaparin 40 mg Syringe SC SCH (10:21)
[2018-11-29] MEDS ORDERED: Sodium Chloride 0.9% 1,000 ML IV SCH (16:21)
--- NOTE | 2018-11-29 20:50 | CARD ---
APPROVED REPORT Date of service: 11/28/2018 EKG Measurement Heart [id number] <Conclusion> Normal sinus rhythm Left ventricular hypertrophy with repolarization abnormality Inferior infarct, age undetermined Abnormal ECG
[2018-11-30] MEDS: Piperacill/Tazo 3.375gm in Dex 3.375 GM/50 ML BAG IVPB SCH ×2 (03:00→10:00)
[2018-11-30 07:00] LABS: BASO # 0.1 K/uL (0.0-0.2); BASO % 0.9 % (0.0-2.0); EOS # 0.6 K/uL (0.0-0.7); HEMOGLOBIN 14.7 g/dL (12.0-18.0); LYMPH % 23.1 % (20.0-40.0); MEAN CELL VOLUME 87.7 fL (80.0-94.0); MEAN PLATELET VOLUME 7.6 fL (7.2-11.7); MONO # 0.6 K/uL (0.0-0.8); MONO % 7.3 % (0.0-10.0); NEUT # 5.3 K/uL (1.8-7.0); NEUT % 61.7 % (50.0-75.0); NRBC % 0.1 % (0.0-2.0); RBC 5.09 Mil/uL (4.40-5.90); RED CELL DISTRIBUTION WIDTH 13.7 % (11.5-14.5); WHITE BLOOD COUNT 8.6 K/uL (4.8-10.8)
[2018-11-30] MEDS ORDERED: Sodium Chloride 0.9% 1,000 ML IV SCH (07:14)
[2018-11-30 07:30] LABS: ALB/GLOB RATIO 1.7 (1.0-2.1); ALBUMIN 4.4 g/dL (3.5-5.0); ALT/SGPT 19 U/L (21-72); AST/SGOT 24 U/L (17-59); BLOOD UREA NITROGEN 8 mg/dL (9-20); CALCIUM 8.5 mg/dl (8.6-10.4); GFR NON-AFRICAN AMERICAN > 60
[2018-11-30 07:31] VITALS: PULSE 60; TEMP 97.7; O2SAT 96
--- NOTE | 2018-11-30 08:03 | CP.PCM.PN ---
<Ricardo Bridges - Last Filed: 11/30/18 08:00> Subjective - Date & Time of Evaluation Date of Evaluation: 11/30/18 Time of Evaluation: 07:20 - Subjective Subjective: General Surgery Pt seen and examined. Afebrile. Pain resolved. Having liquid BMs and flatus. Ambulating. No complaints at this time. Objective - Vital Signs/Intake and Output Vital Signs (last 24 hours): Temp Pulse Resp BP Pulse Ox 97.7 F 60 20 167/78 H 96 11/30/18 07:29 11/30/18 07:29 11/30/18 07:29 11/30/18 07:29 11/30/18 07:29 Intake and Output: 11/30/18 11/30/18 06:59 18:59 Intake Total 1025 Balance 1025 - Medications Medications: Current Medications Enoxaparin Sodium (Lovenox) 40 mg SC DAILY [facility] Last Admin: 11/29/18 10:21 Dose: 40 mg Hydrochlorothiazide (Microzide) 12.5 mg PO DAILY [facility] Last Admin: 11/29/18 16:53 Dose: 12.5 mg Piperacillin Sod/Tazobactam Sod (Zosyn 3.375 Gm Iv Premix) 3.375 gm in 50 mls @ 100 mls/hr IVPB Q6H [facility]; Protocol Last Admin: 11/30/18 03:00 Dose: 100 mls/hr Sodium Chloride (Sodium Chloride 0.9%) 1,000 mls @ 50 mls/hr IV .Q20H [facility] Last Admin: 11/30/18 07:40 Dose: Not Given Influenza Virus Vaccine (Flucelvax Quad [id number] Syr) 60 mcg IM .ONCE ONE Stop: 11/30/18 10:01 Ketorolac Tromethamine (Toradol) 30 mg IVP Q6 PRN PRN Reason: Pain, moderate (4-7) Last Admin: 11/29/18 04:53 Dose: 30 mg Pantoprazole Sodium (Protonix Inj) 40 mg IVP DAILY [facility] Last Admin: 11/29/18 10:21 Dose: 40 mg Pneumococcal Polyvalent Vaccine (Pneumovax 23 Vaccine) 0.5 ml IM .ONCE ONE Stop: 11/30/18 10:01 - Labs Labs: 11/30/18 06:53 11/30/18 06:53 PT 11.4 SECONDS (9.7-12.2) 11/29/18 07:10 INR 1.0 11/29/18 07:10 APTT 33 SECONDS (21-34) 11/29/18 07:10 - Constitutional Appears: Non-toxic, No Acute Distress - Head Exam Head Exam: ATRAUMATIC, NORMOCEPHALIC - Eye Exam Eye Exam: EOMI. absent: Scleral icterus - Respiratory Exam Respiratory Exam: NORMAL BREATHING PATTERN. absent: Accessory Muscle Use, Respiratory Distress - GI/Abdominal Exam GI & Abdominal Exam: Soft. absent: Distended, Firm, Guarding, Rigid, Tenderness, Rebound Additional comments: old well healed scar - Back Exam Back Exam: absent: CVA tenderness (L), CVA tenderness (R) - Neurological Exam Neurological Exam: Alert, Awake, Oriented x3 - Skin Skin Exam: Dry, Warm Assessment and Plan - Assessment and Plan (Free Text) Assessment: 48M with resolving partial SBO due to enteritis Plan: Advance diet as tolerated. Continue abx, consider transition to oral abx. No surgical intervention required. D/W Dr. Jackie Bridges PGY4 <Ken Mejia B - Last Filed: 11/30/18 16:24> Objective - Vital Signs/Intake and Output Vital Signs (last 24 hours): Temp Pulse Resp BP Pulse Ox 97.7 F 60 20 166/99 H 96 11/30/18 07:29 11/30/18 11:00 11/30/18 07:29 11/30/18 11:00 11/30/18 07:29 Intake and Output: 11/30/18 11/30/18 06:59 18:59 Intake Total 1025 Balance 1025 - Labs Labs: 11/30/18 06:53 11/30/18 06:53 PT 11.4 SECONDS (9.7-12.2) 11/29/18 07:10 INR 1.0 11/29/18 07:10 APTT 33 SECONDS (21-34) 11/29/18 07:10 Attending/Attestation - Attestation I have personally seen and examined this patient.: Yes I have fully participated in the care of the patient.: Yes I have reviewed all pertinent clinical information, including history, physical exam and plan: Yes Notes (Text): Pt was seen and examined at bedside Agree with above note and assessment Pt is improved clinically Advance diet as tolerated Can be DC home with PO antibiotics Plan d.w pt in detail. Risk and benefit explained in detail.
[2018-11-30] MEDS ORDERED: Influenza Vaccine 60 mcg/0.5 mL SYR (4YR UP) IM ONE (10:00)
[2018-11-30] MEDS ORDERED: Pneumococcal 23-Valent Vaccine IM ONE (10:00)
[2018-11-30] MEDS ORDERED: Potassium Chloride 20 mEq ER Tab PO SCH (10:00)
[2018-11-30] MEDS: Enoxaparin 40 mg Syringe SC SCH (10:03)
--- NOTE | 2018-11-30 11:39 | CP.PCM.DIS ---
Provider - Provider Date of Admission: 11/29/18 02:37 Attending physician: Michael Kaminski MD Primary care physician: none Consults: 11/29/18 04:43 General Surgery Consult Routine Comment: Consulting Provider: Ken Mejia Consulting Physician: Ken Mejia Reason for Consult: partial SBO Time Spent in preparation of Discharge (in minutes): 45 Diagnosis - Discharge Diagnosis (1) Partial small bowel obstruction Status: Resolved Priority: High (2) HTN (hypertension) Status: Chronic Priority: Medium Hospital Course - Lab Results Lab Results: Most Recent Lab Values WBC 8.6 K/uL (4.8-10.8) 11/30/18 06:53 RBC 5.09 Mil/uL (4.40-5.90) 11/30/18 06:53 Hgb 14.7 g/dL (12.0-18.0) 11/30/18 06:53 Hct 44.6 % (35.0-51.0) 11/30/18 06:53 MCV 87.7 fL (80.0-94.0) 11/30/18 06:53 MCH 29.0 pg (27.0-31.0) 11/30/18 06:53 MCHC 33.0 g/dL (33.0-37.0) 11/30/18 06:53 RDW 13.7 % (11.5-14.5) 11/30/18 06:53 Plt Count 386 K/uL (130-400) 11/30/18 06:53 MPV 7.6 fL (7.2-11.7) 11/30/18 06:53 Neut % (Auto) 61.7 % (50.0-75.0) 11/30/18 06:53 Lymph % (Auto) 23.1 % (20.0-40.0) 11/30/18 06:53 [place] % (Auto) 7.3 % (0.0-10.0) 11/30/18 06:53 Eos % (Auto) 7.0 % (0.0-4.0) H 11/30/18 06:53 Baso % (Auto) 0.9 % (0.0-2.0) 11/30/18 06:53 Neut # (Auto) 5.3 K/uL (1.8-7.0) 11/30/18 06:53 Lymph # (Auto) 2.0 K/uL (1.0-4.3) 11/30/18 06:53 [place] # (Auto) 0.6 K/uL (0.0-0.8) 11/30/18 06:53 Eos # (Auto) 0.6 K/uL (0.0-0.7) 11/30/18 06:53 Baso # (Auto) 0.1 K/uL (0.0-0.2) 11/30/18 06:53 PT 11.4 SECONDS (9.7-12.2) 11/29/18 07:10 INR 1.0 11/29/18 07:10 APTT 33 SECONDS (21-34) 11/29/18 07:10 Sodium 138 mmol/L (132-148) 11/30/18 06:53 Potassium 3.5 mmol/L (3.6-5.2) L 11/30/18 06:53 Chloride 102 mmol/L (98-107) 11/30/18 06:53 Carbon Dioxide 28 mmol/L (22-30) 11/30/18 06:53 Anion Gap 12 (10-20) 11/30/18 06:53 BUN 8 mg/dL (9-20) L 11/30/18 06:53 Creatinine 0.9 mg/dL (0.8-1.5) 11/30/18 06:53 Est GFR ( Amer) > 60 11/30/18 06:53 Est GFR (Non-Af Amer) > 60 11/30/18 06:53 POC Glucose (mg/dL) 118 mg/dL (65-110) H 11/29/18 06:21 Random Glucose 99 mg/dL (75-110) D 11/30/18 06:53 Hemoglobin A1c 6.3 % (4.2-6.5) 11/29/18 07:08 Calcium 8.5 mg/dl (8.6-10.4) L 11/30/18 06:53 Phosphorus 3.8 mg/dL (2.5-4.5) 11/30/18 06:53 Magnesium 1.9 mg/dL (1.6-2.3) 11/30/18 06:53 Total Bilirubin 0.8 mg/dL (0.2-1.3) 11/30/18 06:53 AST 24 U/L (17-59) 11/30/18 06:53 ALT 19 U/L (21-72) L D 11/30/18 06:53 Alkaline Phosphatase 69 U/L (38-126) 11/30/18 06:53 Total Protein 6.9 g/dL (6.3-8.3) 11/30/18 06:53 Albumin 4.4 g/dL (3.5-5.0) 11/30/18 06:53 Globulin 2.5 gm/dL (2.2-3.9) 11/30/18 06:53 Albumin/Globulin Ratio 1.7 (1.0-2.1) 11/30/18 06:53 Lipase 97 U/L (23-300) 11/28/18 23:00 Urine Color Yellow (YELLOW) 11/28/18 23:00 Urine Clarity Clear (Clear) 11/28/18 23:00 Urine pH 7.0 (5.0-8.0) 11/28/18 23:00 Ur Specific [place] 1.012 (1.003-1.030) 11/28/18 23:00 Urine Protein 1+ mg/dL (NEGATIVE) H 11/28/18 23:00 Urine Glucose (UA) Normal mg/dL (Normal) 11/28/18 23:00 Urine Ketones Negative mg/dL (NEGATIVE) 11/28/18 23:00 Urine Blood Negative (NEGATIVE) 11/28/18 23:00 Urine Nitrate Negative (NEGATIVE) 11/28/18 23:00 Urine Bilirubin Negative (NEGATIVE) 11/28/18 23:00 Urine Urobilinogen Normal mg/dL (0.2-1.0) 11/28/18 23:00 Ur Leukocyte Esterase Neg [place]/uL (Negative) 11/28/18 23:00 Urine WBC (Auto) 1 /hpf (0-5) 11/28/18 23:00 Urine RBC (Auto) 1 /hpf (0-3) 11/28/18 23:00 Urine Bacteria Rare (<OCC) 11/28/18 23:00 - Hospital Course Hospital Course: Patient is a 48 year old male with past medical history of HTN, diverticulitis presenting to ED with acute onset cramping periumbilical abdominal pain. Per patient, the pain began suddenly around 8PM, is nonradiating, rated 9/10 in severity. Patient also endorses associated constipation for the past week, states that his last BM was at noon today but that he strains to go to the bathroom, has been having consistently smaller BM. Denies fevers/chills, headaches, dizziness, chest pain, palpitations, sob, cough, nausea/vomiting/diarrhea, dysuria, hematochemia, or melena. - AXR obstruction series: Nonspecific bowel gas pattern with a paucity of bowel gas and air-fluid levels appreciated which is suspicious but not definitive for potential bowel obstruction. - CT A/P: Findings concerning for a small bowel/partial small bowel obstruction with transition zone in the right lower quadrant of the abdomen in the distal ileum. Significant edema and thickening of the obstructed and dilated distal small bowel loops. This may be secondary to acute infectious versus inflammatory versus ischemic changes. Fluid is noted within the right lower quadrant. Patient was made NPO, placed on IVF, and surgery was consulted. Patient did not have nausea or vomiting, so NG tube was not inserted. Patient was also placed on antibiotics for elevated WBC and suspected enteritis. Patient was encouraged to ambulate, and he had a BM by day 2 of hospitalization. He slowly advanced his diet. Additionally, his BP was monitored. Once tolerating PO, he was started on HCTZ. Upon discharge, patient was tolerating a regular PO diet. He was passing gas and having BMs. His BP was better controlled and he was tolerating medications. his leukocytosis resolved and he was afebrile. He was ambulating without difficulty. He will follow-up in the clinic. Discharge Exam - Head Exam Head Exam: ATRAUMATIC, NORMOCEPHALIC - Eye Exam Eye Exam: EOMI, Normal appearance - ENT Exam ENT Exam: Mucous Membranes Moist - Neck Exam Neck exam: Normal Inspection - Respiratory Exam Respiratory Exam: Clear to PA & Lateral, NORMAL BREATHING PATTERN, UNREMARKABLE - Cardiovascular Exam Cardiovascular Exam: RRR, +S1, +S2 - GI/Abdominal Exam GI & Abdominal Exam: Normal Bowel Sounds, Soft, Unremarkable. absent: Distended, Tenderness - Extremities Exam Extremities exam: normal inspection - Back Exam Back exam: NORMAL INSPECTION - Neurological Exam Neurological exam: Alert, CN II-XII Intact, Normal Gait, Oriented x3 - Psychiatric Exam Psychiatric exam: Normal Affect, Normal Mood - Skin Skin Exam: Dry, Intact, Normal Color, Warm Discharge Plan - Discharge Medications Prescriptions: Amoxicillin 875 mg PO BID 5 Days #10 tablet Hydrochlorothiazide [Microzide] 25 mg PO DAILY #30 cap - Follow Up Plan Condition: IMPROVED Disposition: HOME/ ROUTINE Patient education suggested?: Yes Instructions: Small Bowel Obstruction (DC), Amoxicillin, Hydrochlorothiazide, Acute Abdominal Pain (DC) Additional Instructions: Follow-up at the [facility] at [facility]. This will serve as your primary care provider. You have an appointment on December 07 at 1 PM. Call [phone] if you need assistance. You will be given a prescription for Amoxicillin, an antibitoic. Please take two times per day for a total of 5 days. You will be given a prescription for Hydrochlorothiazide, a blood pressure medication. Please take daily. You may take Tylenol for pain. If symptoms recur, return to the nearest emergency department. Seguimiento en la [facility] en el [facility] Emergency Department. [place] servir gris pérez proveedor de atencin primaria. Tienes venancio reid el enero a la 1 PM. Llame al [phone] si necesita ayuda. Le darn venancio receta para la amoxicilina, un antibitico. Por favor tome dos veces al da por un total de 5 veronica. Le darn venancio receta de hidroclorotiazida, un medicamento para la presin arterial. Por favor tome diariamente. Puede eloise Tylenol para el dolor. Si los sntomas se repiten, vuelva al servicio de urgencias ms [facility]. Referrals: [facility] at [facility] [Outside]
[2018-11-30 12:51] VITALS: BP 166/99
== END 2018-11-30 14:44 | disposition home or self-care (01) | DRG 247 ==
LOC: C.ER 22:28 → C.3T 11-29 02:37
PROVIDERS: ADMIT Family Medicine; ATTEND Family Medicine
DX: K56.600 Partial intestinal obstruction, unspecified as to cause (principal); I10 Essential (primary) hypertension; K52.9 Noninfective gastroenteritis and colitis, unspecified; Z90.49 Acquired absence of other specified parts of digestive tract; F17.210 Nicotine dependence, cigarettes, uncomplicated

== ENCOUNTER 2018-12-04 07:27 | Emergency (ER) | payer OTHER ==
[2018-12-04 07:38] VITALS: RESP 18; O2SAT 99
[2018-12-04] MEDS ORDERED: DiphenhydrAMINE 50 mg/ml Inj IM STA (08:18)
--- NOTE | 2018-12-04 08:18 | C.PDOC ---
History Of Present Illness 48 y/o male with htn presents to ed with itchy rash to arms, legs and torso after starting on hctz and Augmentin 2 days ago. pt was admitted to [facility] [place] for partial sbo and discharged with these medications. denies any swelling to lip, tongue, mouth or any difficulty breathing. no abdominal pain, no chest pain. Time Seen by Provider: 12/04/18 07:44 Chief Complaint (Nursing): Allergic Reaction History Per: Patient History/Exam Limitations: no limitations Onset/Duration Of Symptoms: Days (2) Current Symptoms Are (Timing): Still Present Severity: Mild Past Medical History Reviewed: Historical Data, Nursing Documentation, Vital Signs Vital Signs: Last Vital Signs Temp 97.9 F 12/04/18 07:32 Pulse 66 12/04/18 07:32 Resp 18 12/04/18 07:32 BP 199/110 H 12/04/18 07:32 Pulse Ox 99 12/04/18 07:32 - Medical History PMH: HTN Denies: HIV, Chronic Kidney Disease Surgical History: Appendectomy (perforated appendix) Family History: States: Unknown Family Hx - Social History Hx Tobacco Use: Yes Hx Alcohol Use: No Hx Substance Use: No - Immunization History Hx Tetanus Toxoid Vaccination: No Hx Influenza Vaccination: No Hx Pneumococcal Vaccination: No Review Of Systems Constitutional: Negative for: Fever, Chills Cardiovascular: Negative for: Chest Pain Respiratory: Negative for: Cough, Shortness of Breath Gastrointestinal: Negative for: Vomiting, Abdominal Pain Skin: Positive for: Rash Neurological: Negative for: Weakness, Numbness Physical Exam - Physical Exam Appears: Non-toxic, No Acute Distress Skin: Warm, Dry, Other (patches of erythema to posterior shoulders, posterior knees, upper back. not urticarial appearing ) Head: Atraumatic, Normacephalic Eye(s): bilateral: Normal Inspection Nose: No Discharge Oral Mucosa: Moist Tongue: Normal Appearing, No Swelling Lips: Normal Appearing, No Swelling Throat: No Erythema, No Exudate Neck: Supple Respiratory: No Decreased Breath Sounds, No Wheezing Gastrointestinal/Abdominal: Bowel Sounds, Soft, No Tenderness, No Distention Neurological/Psych: Oriented x3, Normal Speech, Normal Cognition ED Course And Treatment O2 Sat by Pulse Oximetry: 99 Medical Decision Making Medical Decision Making: pt with elevated bp in ed. recheck is 181/94. pt to take his own hctz now in ed. will add on norvasc 10 mg, and pt has appt to f/u with Dr Abdi on . pt denies cp, sob, abdominal pain, vomiting. benadryl given for rash. will stop augmentin. Disposition Counseled Patient/Family Regarding: Diagnosis, Need For Followup, Rx Given - Disposition Referrals: Kierra Abdi MD [Staff Provider] - Disposition: HOME/ ROUTINE Disposition Time: 09:36 Condition: IMPROVED Additional Instructions: Por favor, deje de eloise antibiticos. Continuar tomando hidroclorotiazida. Agregue Norvasc (amlodipina) 10 mg venancio vez al da. Donell un seguimiento en la clnica mdica el saul segn lo programado y revise los medicamentos para la presin arterial. Puede eloise Benadryl (difenhidramina) cada 6 horas si es necesario para la picazn y la erupcin; [place] medicamento le da sueo, por lo que no debe conducir ni operar maquinaria cuando la kong. Regrese a la evelin de emergencias por cualquier inflamacin en los labios, lengua o boca, problemas para respirar. Dolor en el pecho o cualquier otra inquietud. Please stop taking antibiotic. Continue taking hydrochlorothiazide. Add Norvasc (amlodipine) 10 mg once a day. Follow up in medical clinic on as scheduled and review blood pressure medicines. You may take Benadryl (diphenhydramine) every 6 hours if needed for itching and rash; this medicine makes you sleepy, so no driving or operting machinery when taking it. Return to ER for any swelling to lips, tongue or mouth, trouble breating. chest pain or any other concerns. Prescriptions: amLODIPine [Norvasc] 10 mg PO DAILY #14 tab DiphenhydrAMINE [Benadryl] 25 mg PO Q6 #40 cap Instructions: Adverse Drug Reactions, Adult (DC) Forms: Gen Discharge Inst [place], [facility] ([place]) - Clinical Impression Clinical Impression: Rash and nonspecific skin eruption
[2018-12-04] MEDS ORDERED: DiphenhydrAMINE 50 mg/ml Inj ONE (08:34)
[2018-12-04 09:54] VITALS: BP 181/87; PULSE 65; TEMP 97.8
== END 2018-12-04 09:54 | disposition home or self-care (01) ==
LOC: C.ER 07:27
DX: R21 Rash and other nonspecific skin eruption (principal)
CPT/HCPCS: 96372; 99285; J1200

== ENCOUNTER 2018-12-13 09:32 | Outpatient (CLI) | payer OTHER | END 2018-12-13 09:33 | disposition home or self-care (01) | LOC: C.CARD 09:32 ==